=== PATIENT | female | born 1990 | race Two or more races ===

== ENCOUNTER 2017-09-30 15:16 | Outpatient (CLI) | payer BC ==
[2017-10-01] MEDS ORDERED: LIDOCAINE 2% JEL UROJET 10 ML MM ONE (02:18)
== END 2017-09-30 23:59 | disposition home or self-care (01) ==
LOC: RAD 15:16
PROVIDERS: ATTEND Surgery
DX: Z01.818 Encounter for other preprocedural examination (principal)
CPT/HCPCS: 71046; J3490